=== PATIENT | female | born 1945 | race Caucasian/White ===

== ENCOUNTER → 2016-12-26 | Outpatient (REF) | payer MEDICARE ==
[2016-12-26 12:03] LABS: ALBUMIN 3.9 GM/DL (3.2-5.2); ALBUMIN/GLOBULIN RATIO 1.34 (1.00-1.93); ALKALINE PHOSPHATASE 79 U/L (45-117); ALT/SGPT 36 U/L (12-78); ANION GAP 9 MEQ/L (8-16); AST/SGOT 15 U/L (15-37); BILIRUBIN,TOTAL 0.3 MG/DL (0.2-1.0); BLOOD UREA NITROGEN 22 MG/DL (7-18); CALCIUM LEVEL 9.2 MG/DL (8.8-10.2); CARBON DIOXIDE LEVEL 27 MEQ/L (21-32); CHLORIDE LEVEL 106 MEQ/L (98-107); FREE T4 0.86 NG/DL (0.76-1.46); GLOMERULAR FILTRATION RATE > 60.0 (>39); GLUCOSE, FASTING 115 MG/DL (83-110); POTASSIUM SERUM 4.4 MEQ/L (3.5-5.1); SODIUM LEVEL 142 MEQ/L (136-145); TOTAL PROTEIN 6.8 GM/DL (6.4-8.2)
== END ==
LOC: M SFHCCLAY 08:04
PROVIDERS: ATTEND Nurse Practitioner Family
DX: I10 Essential (primary) hypertension (principal); E03.9 Hypothyroidism, unspecified; E55.9 Vitamin D deficiency, unspecified

== ENCOUNTER → 2017-08-08 | Outpatient (CLI) | payer MEDICARE ==
--- NOTE | 2017-08-08 12:18 | REPMRS ---
Patient History The patient states she has not had a clinical breast exam in over a year. Patient is postmenopausal and has history of other cancer at age 57. No known family history of cancer. Benign excisional biopsy of the left breast, 2003. Benign excisional biopsy of the right breast, 1999. Took estrogen for 5 years. Digital Woman Screen Mammo: August 08, 2017 - Exam #: [id number] Bilateral CC and MLO view(s) were taken. Technologist: Marcy Batista, Technologist Prior study comparison: August 02, 2015, digital woman screen mammo performed at [facility]. July 15, 2014, digital woman screen mammo performed at [facility]. July 16, 2013, digital woman screen mammo performed at [facility]. FINDINGS: There are scattered fibroglandular densities. There has been no change in the appearance of the mammogram from the prior studies. There is a mild amount of scattered fibroglandular density which is fairly symmetric. There is no interval development of dominant mass, architectural distortion, or clustered microcalcification suggestive of malignancy. ASSESSMENT: BI-RADS/ACR category 1 mammogram. Negative. Recommendation Routine screening mammogram in 1 year (for women over age 40). This mammogram was interpreted with the aid of an FDA-approved computer-aided dectection system. Electronically Signed By: Donovan Lagos MD 08/08/17 [id number]
--- NOTE | 2017-08-09 09:11 | DEXA ---
AP SPINE L1 - L4 1.248 0.4 2.1 LT FEMUR TOTAL 0.932 -0.6 1.0 RT FEMUR TOTAL 0.926 -0.6 1.0 TOTAL BODY TOTAL OTHER COMMENTS: Normal bone densitometry of the spine. Normal bone densitometry of the left hip. There is low bone density of the right hip. The density of the spine has increased 10.9% since the initial exam on 09/2006. The spine density has increased 3.0% since the most recent exam on 07/2015. The density of the left hip has increased 6.6% since the initial exam on 09/2006. The density of the left hip has increased 1.6% since the most recent exam on 2014. The density of the right hip has increased 6.4% since the initial exam on 2006. The density of the right hip has increased 0.3% since the most recent exam on . FOLLOW-UP: Recommendation for the next bone density exam: 2 years. FREDA
== END ==
LOC: M WHC 10:48
PROVIDERS: ATTEND Nurse Practitioner Family
DX: Z12.31 Encounter for screening mammogram for malignant neoplasm of breast (principal); M81.0 Age-related osteoporosis without current pathological fracture
CPT/HCPCS: 77080; G0202

== ENCOUNTER → 2017-11-20 | Outpatient (CLI) | payer MEDICARE ==
[2017-11-20 11:12] LABS: HEMATOCRIT 42.1 % (36.0-47.0); HEMOGLOBIN 13.7 g/dl (12.0-16.0); MEAN CORPUSCULAR HEMOGLOBIN 30.9 pg (27.0-33.0); MEAN CORPUSCULAR HGB CONC 32.5 g/dl (32.0-36.5); MEAN CORPUSCULAR VOLUME 94.8 fl (80.0-96.0); PLATELET COUNT, AUTOMATED 288 10^3/uL (150-450); RED BLOOD COUNT 4.44 10^6/uL (4.00-5.40); RED CELL DISTRIBUTION WIDTH 13.8 % (11.5-14.5); WHITE BLOOD COUNT 9.3 10^3/uL (4.0-10.0)
[2017-11-20 11:17] LABS: APPEARANCE, URINE CLEAR (CLEAR); BACTERIA, URINE AUTO NEGATIVE (NEGATIVE); BILIRUBIN, URINE AUTO NEGATIVE (NEGATIVE); BLOOD, URINE BLOOD NEGATIVE (NEGATIVE); COLOR, URINE YELLOW (YELLOW); GLUCOSE, URINE (UA) AUTO NEGATIVE (NEGATIVE); KETONE, URINE AUTO NEGATIVE (NEGATIVE); LEUKOCYTE ESTERASE, URINE AUTO NEGATIVE (NEGATIVE); NITRITE, URINE AUTO NEGATIVE (NEGATIVE); PROTEIN, URINE AUTO NEGATIVE (NEGATIVE); RBC, URINE AUTO 2 /HPF (0-3); SPECIFIC GRAVITY URINE AUTO 1.012 (1.002-1.035); SQUAMOUS EPITHELIAL CELL UR AU 0 /HPF (0-6); UROBILINOGEN, URINE AUTO 0.2 mg/dL (0.0-2.0); WBC, URINE AUTO 0 /HPF (0-3)
[2017-11-20 11:25] LABS: INR 0.89; PROTHROMBIN TIME 12.1 SECONDS (12.4-14.5)
[2017-11-20 11:35] LABS: ERYTHROCYTE SEDIMENTATION RATE 12 mm/hr (0-30)
[2017-11-20 11:39] LABS: ALBUMIN/GLOBULIN RATIO 1.25 (1.00-1.93); ALKALINE PHOSPHATASE 84 U/L (45-117); ALT/SGPT 37 U/L (12-78); ANION GAP 7 MEQ/L (8-16); AST/SGOT 17 U/L (7-37); BILIRUBIN,TOTAL 0.6 MG/DL (0.2-1.0); BLOOD UREA NITROGEN 35 MG/DL (7-18); CALCIUM LEVEL 9.6 MG/DL (8.8-10.2); CARBON DIOXIDE LEVEL 29 MEQ/L (21-32); CHLORIDE LEVEL 103 MEQ/L (98-107); CREATININE FOR GFR 0.92 MG/DL (0.55-1.30); GLOMERULAR FILTRATION RATE > 60.0 (>39); GLUCOSE, FASTING 93 MG/DL (70-100); POTASSIUM SERUM 4.6 MEQ/L (3.5-5.1); SODIUM LEVEL 139 MEQ/L (136-145); TOTAL PROTEIN 7.2 GM/DL (6.4-8.2)
== END ==
LOC: M ADMPAT 09:10
DX: Z01.818 Encounter for other preprocedural examination (principal); M16.12 Unilateral primary osteoarthritis, left hip
CPT/HCPCS: 71046

== ENCOUNTER 2017-12-04 05:46 | Inpatient (IN) | payer MEDICARE ==
[2017-12-04] MEDS: LR 1,000 ML IV ×3 (06:25→13:41)
[2017-12-04] MEDS ORDERED: PROPOFOL 200 MG/20 ML VIAL As Ordered (07:11)
[2017-12-04] MEDS ORDERED: LIDOCAINE 2% INJ 100 MG/5 ML SDV (FOR ANES.) As Ordered (07:11)
[2017-12-04] MEDS ORDERED: fentaNYL 100 MCG/2 ML INJECTION (J3010) As Ordered (07:12)
[2017-12-04] MEDS ORDERED: MIDAZOLAM INJ 2 MG/2 ML VIAL (J2250) As Ordered (07:12)
[2017-12-04] MEDS: ceFAZolin 1GM INJ (J0690 PER 500MG) As Ordered (08:16)
[2017-12-04] MEDS ORDERED: PHENYLephrine HCL 500 MCG/5 ML (100MCG/ML) SYRINGE (J2370) As Ordered ×3 (08:30→09:00)
[2017-12-04] MEDS: TRANEXAMIC ACID 100 MG/ML 10ML VIAL As Ordered (08:50)
[2017-12-04] MEDS: EPINEPHrine INJ 1 MG/ML 1ML AMP As Ordered (08:50)
[2017-12-04] MEDS ORDERED: MORPHINE 1MG/ML IN 0.9% NACL 100ML IV BAG As Ordered (09:16)
[2017-12-04] MEDS ORDERED: ONDANSETRON 4MG/2ML VIAL (J2405) As Ordered (09:47)
[2017-12-04] MEDS: ONDANSETRON 4MG/2ML VIAL (J2405) IV (09:57)
[2017-12-04] MEDS ORDERED: ONDANSETRON 4MG/2ML VIAL (J2405) IV (10:15)
[2017-12-04] MEDS ORDERED: MORPHINE 1MG/ML IN 0.9% NACL 100ML IV BAG IV (10:15)
[2017-12-04] MEDS ORDERED: MORPHINE 10 MG/ML 1ML VIAL (J2270) IV (10:15)
[2017-12-04] MEDS ORDERED: NALOXONE INJ 0.4 MG/1 ML VIAL (J2310) IV (10:15)
[2017-12-04] MEDS ORDERED: fentaNYL 100 MCG/2 ML INJECTION (J3010) IV (10:15)
[2017-12-04] MEDS ORDERED: METOCLOPRAMIDE INJ 10MG/2ML VIAL (J2765) IV (10:15)
[2017-12-04] MEDS ORDERED: PERCOCET 5MG/325MG TAB PO (10:15)
[2017-12-04] MEDS ORDERED: FLEET ENEMA PR (10:15)
[2017-12-04] MEDS ORDERED: EPIDURAL/PCA KEYS XX (10:15)
[2017-12-04] MEDS ORDERED: diphenhydrAMINE INJ 50MG/ML VIAL (J1200) IV (10:15)
[2017-12-04] MEDS ORDERED: NALBUPHINE HCL 10 MG/ML AMP (J2300) IV (10:15)
[2017-12-04] MEDS: LIDOCAINE 1% SDV 5 ML VIAL SQ (13:41)
[2017-12-04] MEDS: VITAMIN D 1,000 INTERNATIONAL UNITS TABLET PO (16:17)
[2017-12-04] MEDS: VENLAFAXINE **XR** 75MG CAPSULE PO (16:17)
[2017-12-04] MEDS: EZETIMIBE 10 MG TAB (ZETIA) PO (16:18)
[2017-12-04] MEDS: ATORVASTATIN 20 MG TAB PO (16:18)
[2017-12-04] MEDS: WARFARIN SOD 5 MG TAB PO (17:50)
[2017-12-05] MEDS: LR 1,000 ML IV (00:14)
[2017-12-05] MEDS: ONDANSETRON 4MG/2ML VIAL (J2405) IV (00:15)
[2017-12-05] MEDS: LEVOTHYROXINE 50MCG TABLET (0.05MG) PO (05:19)
[2017-12-05 05:58] LABS: HEMATOCRIT 37.4 % (36.0-47.0); HEMOGLOBIN 12.3 g/dl (12.0-16.0); MEAN CORPUSCULAR HEMOGLOBIN 31.1 pg (27.0-33.0); MEAN CORPUSCULAR HGB CONC 32.9 g/dl (32.0-36.5); MEAN CORPUSCULAR VOLUME 94.7 fl (80.0-96.0); PLATELET COUNT, AUTOMATED 288 10^3/uL (150-450); RED BLOOD COUNT 3.95 10^6/uL (4.00-5.40); RED CELL DISTRIBUTION WIDTH 14.1 % (11.5-14.5); WHITE BLOOD COUNT 11.2 10^3/uL (4.0-10.0)
[2017-12-05 06:09] LABS: PROTHROMBIN TIME 15.4 SECONDS (12.4-14.5)
[2017-12-05 06:11] LABS: ANION GAP 7 MEQ/L (8-16); BLOOD UREA NITROGEN 26 MG/DL (7-18); CARBON DIOXIDE LEVEL 28 MEQ/L (21-32); CHLORIDE LEVEL 104 MEQ/L (98-107); GLOMERULAR FILTRATION RATE 57.9 (>39); GLUCOSE, FASTING 146 MG/DL (70-100); POTASSIUM SERUM 4.1 MEQ/L (3.5-5.1); SODIUM LEVEL 139 MEQ/L (136-145)
[2017-12-05] MEDS ORDERED: ONDANSETRON 4 MG TAB (S0181) PO (06:45)
[2017-12-05] MEDS: VENLAFAXINE **XR** 75MG CAPSULE PO (10:33)
[2017-12-05] MEDS: OMEPRAZOLE 20 MG CAP PO (10:33)
[2017-12-05] MEDS: VITAMIN D 1,000 INTERNATIONAL UNITS TABLET PO (10:34)
[2017-12-05] MEDS: ATORVASTATIN 20 MG TAB PO (10:34)
[2017-12-05] MEDS: LISINOPRIL 10 MG TAB PO (10:34)
[2017-12-05] MEDS: EZETIMIBE 10 MG TAB (ZETIA) PO (10:34)
[2017-12-05] MEDS: MIRALAX *UNIT DOSE* 17GM PACKET PO (10:35)
[2017-12-05] MEDS: MOM 30ML SUSPENSION UDC PO ×2 (10:35→10:45)
[2017-12-05] MEDS: SENOKOT S TAB PO ×2 (10:35→22:11)
[2017-12-05] MEDS: PERCOCET 5MG/325MG TAB PO ×2 (10:37→15:46)
[2017-12-05] MEDS: WARFARIN SOD 5 MG TAB PO (16:20)
[2017-12-06] MEDS: LEVOTHYROXINE 50MCG TABLET (0.05MG) PO (06:22)
[2017-12-06] MEDS: PERCOCET 5MG/325MG TAB PO ×3 (06:24→18:22)
[2017-12-06 06:58] LABS: HEMATOCRIT 32.2 % (36.0-47.0); HEMOGLOBIN 10.5 g/dl (12.0-16.0); MEAN CORPUSCULAR HEMOGLOBIN 30.7 pg (27.0-33.0); MEAN CORPUSCULAR HGB CONC 32.6 g/dl (32.0-36.5); MEAN CORPUSCULAR VOLUME 94.2 fl (80.0-96.0); PLATELET COUNT, AUTOMATED 240 10^3/uL (150-450); RED BLOOD COUNT 3.42 10^6/uL (4.00-5.40); RED CELL DISTRIBUTION WIDTH 14.1 % (11.5-14.5); WHITE BLOOD COUNT 10.8 10^3/uL (4.0-10.0)
[2017-12-06 07:09] LABS: INR 2.25; PROTHROMBIN TIME 25.7 SECONDS (12.4-14.5)
[2017-12-06 07:20] LABS: ANION GAP 6 MEQ/L (8-16); BLOOD UREA NITROGEN 22 MG/DL (7-18); CALCIUM LEVEL 8.9 MG/DL (8.8-10.2); CARBON DIOXIDE LEVEL 30 MEQ/L (21-32); CHLORIDE LEVEL 100 MEQ/L (98-107); CREATININE FOR GFR 0.88 MG/DL (0.55-1.30); GLOMERULAR FILTRATION RATE > 60.0 (>39); GLUCOSE, FASTING 115 MG/DL (70-100); POTASSIUM SERUM 4.1 MEQ/L (3.5-5.1); SODIUM LEVEL 136 MEQ/L (136-145)
[2017-12-06] MEDS: MOM 30ML SUSPENSION UDC PO (09:28)
[2017-12-06] MEDS: EZETIMIBE 10 MG TAB (ZETIA) PO (09:28)
[2017-12-06] MEDS: OMEPRAZOLE 20 MG CAP PO (09:28)
[2017-12-06] MEDS: VENLAFAXINE **XR** 75MG CAPSULE PO (09:28)
[2017-12-06] MEDS: ATORVASTATIN 20 MG TAB PO (09:28)
[2017-12-06] MEDS: VITAMIN D 1,000 INTERNATIONAL UNITS TABLET PO (09:28)
[2017-12-06] MEDS: MIRALAX *UNIT DOSE* 17GM PACKET PO (09:28)
[2017-12-06] MEDS: LISINOPRIL 10 MG TAB PO (09:29)
[2017-12-06] MEDS: SENOKOT S TAB PO ×2 (09:29→22:23)
[2017-12-06] MEDS: ACETAMINOPHEN TAB 650MG DOSE (2X325MG) PO (22:23)
[2017-12-07] MEDS: ACETAMINOPHEN TAB 650MG DOSE (2X325MG) PO (05:41)
[2017-12-07] MEDS: LEVOTHYROXINE 50MCG TABLET (0.05MG) PO (05:41)
[2017-12-07 06:59] LABS: INR 1.86
[2017-12-07 07:12] LABS: ANION GAP 2 MEQ/L (8-16); BLOOD UREA NITROGEN 18 MG/DL (7-18); CALCIUM LEVEL 8.3 MG/DL (8.8-10.2); CARBON DIOXIDE LEVEL 32 MEQ/L (21-32); CHLORIDE LEVEL 106 MEQ/L (98-107); CREATININE FOR GFR 0.69 MG/DL (0.55-1.30); GLOMERULAR FILTRATION RATE > 60.0 (>39); GLUCOSE, FASTING 108 MG/DL (70-100); POTASSIUM SERUM 4.4 MEQ/L (3.5-5.1); SODIUM LEVEL 140 MEQ/L (136-145)
[2017-12-07] MEDS: ATORVASTATIN 20 MG TAB PO (08:22)
[2017-12-07] MEDS: VITAMIN D 1,000 INTERNATIONAL UNITS TABLET PO (08:22)
[2017-12-07] MEDS: MOM 30ML SUSPENSION UDC PO (08:22)
[2017-12-07] MEDS: VENLAFAXINE **XR** 75MG CAPSULE PO (08:22)
[2017-12-07] MEDS: SENOKOT S TAB PO (08:22)
[2017-12-07] MEDS: OMEPRAZOLE 20 MG CAP PO (08:22)
[2017-12-07] MEDS: EZETIMIBE 10 MG TAB (ZETIA) PO (08:22)
[2017-12-07] MEDS: MIRALAX *UNIT DOSE* 17GM PACKET PO (08:22)
[2017-12-07] MEDS: PERCOCET 5MG/325MG TAB PO ×2 (08:23→14:17)
[2017-12-07] MEDS: LISINOPRIL 10 MG TAB PO (08:25)
== END 2017-12-07 14:20 | disposition home health service (06) | DRG 470 ==
LOC: M OR 05:46 → M MS5PR 10:51
PROC: 0SRB02Z Replacement of Left Hip Joint with Metal on Polyethylene Synthetic Substitute, Open Approach (ICD-10-PCS; principal; 2017-12-04 07:30)
DX: M16.12 Unilateral primary osteoarthritis, left hip (principal); I10 Essential (primary) hypertension; E78.2 Mixed hyperlipidemia; E03.9 Hypothyroidism, unspecified; F34.1 Dysthymic disorder; K21.9 Gastro-esophageal reflux disease without esophagitis; J30.2 Other seasonal allergic rhinitis; Z79.899 Other long term (current) drug therapy; Z87.891 Personal history of nicotine dependence; E55.9 Vitamin D deficiency, unspecified; E66.9 Obesity, unspecified; Z68.32 Body mass index [BMI] 32.0-32.9, adult

== ENCOUNTER → 2017-12-10 | Outpatient (REF) | payer MEDICARE ==
[2017-12-10 19:19] LABS: INR 1.83; PROTHROMBIN TIME 21.7 SECONDS (12.4-14.5)
== END ==
LOC: M SHH 17:23
DX: Z51.81 Encounter for therapeutic drug level monitoring (principal); Z79.01 Long term (current) use of anticoagulants
CPT/HCPCS: 85610

== ENCOUNTER → 2017-12-13 | Outpatient (REF) | payer MEDICARE ==
[2017-12-13 13:48] LABS: INR 1.69; PROTHROMBIN TIME 20.4 SECONDS (12.4-14.5)
== END ==
LOC: M SHH 13:32
DX: Z51.81 Encounter for therapeutic drug level monitoring (principal); Z79.01 Long term (current) use of anticoagulants
CPT/HCPCS: 85610

== ENCOUNTER → 2017-12-20 | Outpatient (REF) | payer MEDICARE ==
[2017-12-20 13:08] LABS: INR 1.71; PROTHROMBIN TIME 20.6 SECONDS (12.4-14.5)
== END ==
LOC: M LAB REF 12:45
DX: Z79.01 Long term (current) use of anticoagulants (principal)
CPT/HCPCS: 85610

== ENCOUNTER → 2017-12-25 | Outpatient (REF) | payer MEDICARE ==
[2017-12-25 16:43] LABS: INR 1.74; PROTHROMBIN TIME 20.9 SECONDS (12.4-14.5)
== END ==
LOC: M SHH 15:50
DX: Z79.01 Long term (current) use of anticoagulants (principal)
CPT/HCPCS: 85610

== ENCOUNTER → 2017-12-27 | Outpatient (REF) | payer MEDICARE ==
[2017-12-27 14:47] LABS: INR 1.91; PROTHROMBIN TIME 22.5 SECONDS (12.4-14.5)
== END ==
LOC: M SHH 14:17
DX: Z79.01 Long term (current) use of anticoagulants (principal)
CPT/HCPCS: 85610

== ENCOUNTER → 2017-12-31 | Outpatient (REF) | payer MEDICARE ==
[2017-12-31 11:43] LABS: PROTHROMBIN TIME 27.1 SECONDS (12.4-14.5)
== END ==
LOC: M SHH 11:22
DX: Z79.01 Long term (current) use of anticoagulants (principal)
CPT/HCPCS: 85610

== ENCOUNTER → 2018-03-20 | Outpatient (REF) | payer MEDICARE ==
[2018-03-20 15:47] LABS: FREE T4 1.01 NG/DL (0.76-1.46)
== END ==
LOC: M SFHCPLAZ 10:18
DX: E03.9 Hypothyroidism, unspecified (principal)
CPT/HCPCS: 84443

== ENCOUNTER → 2018-09-23 | Outpatient (REF) | payer MEDICARE ==
[~2018-09-23] MED LIST: ATOR40TA75 PO; CALTCHW5 PO; COUM1TAB17 PO; COUM2.5T17 PO; LISI10TA4 PO; MELO15TA28 PO; NIAC500T5 PO; OMEP40CA2 PO; PERC5TAB12 PO; SYNT50TA PO; VENL100T PO; VENL150C43 PO; VITA-122 PO; ZETI10TA30 PO
[2018-09-23 17:08] LABS: ALBUMIN 3.9 GM/DL (3.2-5.2); ALT/SGPT 30 U/L (12-78); BILIRUBIN,TOTAL 0.5 MG/DL (0.2-1.0); BLOOD UREA NITROGEN 21 MG/DL (7-18); CALCIUM LEVEL 9.4 MG/DL (8.8-10.2); CARBON DIOXIDE LEVEL 25 MEQ/L (21-32); CHLORIDE LEVEL 107 MEQ/L (98-107); CHOLESTEROL LEVEL 166 MG/DL (<200); CHOLESTEROL RISK RATIO 2.634 (<5); CREATININE FOR GFR 0.91 MG/DL (0.55-1.30); FREE T4 0.89 NG/DL (0.76-1.46); GLOMERULAR FILTRATION RATE > 60.0 (>39); GLUCOSE, FASTING 117 MG/DL (70-100); HDL CHOLESTEROL 63 MG/DL (>40); LDL CHOLESTEROL 75 MG/DL (<100); NON-HDL-C 103 MG/DL; POTASSIUM SERUM 4.5 MEQ/L (3.5-5.1); SODIUM LEVEL 143 MEQ/L (136-145); TOTAL PROTEIN 7.1 GM/DL (6.4-8.2); TRIGLYCERIDES LEVEL 140 MG/DL (<150)
[2018-09-23 17:10] LABS: TOTAL 25(OH) VITAMIN D 39.2 NG/ML (30.0-100.0)
== END ==
LOC: M SFHCCLAY 10:05
PROVIDERS: ATTEND Nurse Practitioner Family
DX: I10 Essential (primary) hypertension (principal); E03.9 Hypothyroidism, unspecified; E78.49 Other hyperlipidemia; M81.0 Age-related osteoporosis without current pathological fracture

== ENCOUNTER → 2019-03-17 | Outpatient (REF) | payer MEDICARE ==
[2019-03-17 12:27] LABS: ALT/SGPT 36 U/L (12-78); BILIRUBIN,TOTAL 0.5 MG/DL (0.2-1.0); BLOOD UREA NITROGEN 18 MG/DL (7-18); CALCIUM LEVEL 9.5 MG/DL (8.8-10.2); CARBON DIOXIDE LEVEL 27 MEQ/L (21-32); CHLORIDE LEVEL 105 MEQ/L (98-107); CREATININE FOR GFR 0.89 MG/DL (0.55-1.30); FREE T4 0.77 NG/DL (0.76-1.46); GLOMERULAR FILTRATION RATE > 60.0 (>39); GLUCOSE, FASTING 129 MG/DL (70-100); POTASSIUM SERUM 4.6 MEQ/L (3.5-5.1); SODIUM LEVEL 140 MEQ/L (136-145); TOTAL 25(OH) VITAMIN D 29.2 NG/ML (30.0-100.0); TOTAL PROTEIN 7.4 GM/DL (6.4-8.2)
== END ==
LOC: M SFHCCLAY 07:18
PROVIDERS: ATTEND Nurse Practitioner Family
DX: I10 Essential (primary) hypertension (principal); E03.9 Hypothyroidism, unspecified; M81.0 Age-related osteoporosis without current pathological fracture

== ENCOUNTER → 2019-03-20 | Outpatient (REF) | payer MEDICARE ==
[2019-03-20 13:10] LABS: HEMOGLOBIN A1c 5.9 %
== END ==
LOC: M SFHCPLAZ 07:27
PROVIDERS: ATTEND Nurse Practitioner Family
DX: R73.01 Impaired fasting glucose (principal)

== ENCOUNTER → 2019-03-27 | Outpatient (CLI) | payer MEDICARE ==
--- NOTE | 2019-03-27 15:10 | REPMRS ---
Patient History The patient states she has not had a clinical breast exam in over a year. No known family history of cancer. Benign excisional biopsy of the left breast, 2003. Benign excisional biopsy of the right breast, 1999. Took estrogen for 5 years. 3D TOMOSYNTHESIS WAS PERFORMED. The [facility] lifetime risk for breast cancer is 2.9%. Digital Woman Screen Mammo: March 27, 2019 - Exam #: [id number] Bilateral CC and MLO view(s) were taken. Technologist: Flakita Wisdom, Technologist Prior study comparison: August 08, 2017, digital woman screen mammo performed at [facility]. August 02, 2015, digital woman screen mammo performed at [facility]. FINDINGS: There are scattered fibroglandular densities. There has been no change in the appearance of the mammogram from the prior studies. There is a mild amount of residual fibroglandular tissue which is fairly symmetric. There is no interval development of dominant mass, architectural distortion, or clustered microcalcification suggestive of malignancy. Assessment: BI-RADS/ACR category 1 mammogram. Negative Mammogram. Recommendation Routine screening mammogram in 1 year (for women over age 40). This mammogram was interpreted with the aid of an FDA-approved computer-aided dectection system. Electronically Signed By: Evens Kim MD 03/27/19 [id number]
== END ==
LOC: M WHC 12:03
PROVIDERS: ATTEND Nurse Practitioner Family
DX: Z12.31 Encounter for screening mammogram for malignant neoplasm of breast (principal); Z92.23 Personal history of estrogen therapy

== ENCOUNTER → 2019-09-18 | Outpatient (REF) | payer MEDICARE ==
[~2019-09-18] MED LIST changes: -OMEP40CA2 PO; +OMEP40CA97 PO; +ZETI10TA16 PO; -ZETI10TA30 PO
[2019-09-18 13:38] LABS: ALBUMIN 4.2 GM/DL (3.2-5.2); BILIRUBIN,TOTAL 0.5 MG/DL (0.2-1.0); CALCIUM LEVEL 9.5 MG/DL (8.8-10.2); CHOLESTEROL RISK RATIO 3.125 (<5); CREATININE FOR GFR 0.99 MG/DL (0.55-1.30); GLOMERULAR FILTRATION RATE 58.4 (>39); POTASSIUM SERUM 4.3 MEQ/L (3.5-5.1); THYROID STIMULATING HORMONE 2.51 uIU/ML (0.358-3.740); TOTAL 25(OH) VITAMIN D 34.1 NG/ML (30.0-100.0); TOTAL PROTEIN 6.9 GM/DL (6.4-8.2)
== END ==
LOC: M SFHCCLAY 08:41
PROVIDERS: ATTEND Family Medicine
DX: I10 Essential (primary) hypertension (principal); E78.49 Other hyperlipidemia; E03.9 Hypothyroidism, unspecified; E55.9 Vitamin D deficiency, unspecified

== ENCOUNTER → 2020-07-07 | Outpatient (REF) | payer MEDICARE ==
[2020-07-07 12:07] LABS: BLOOD UREA NITROGEN 18 MG/DL (7-18); CALCIUM LEVEL 9.8 MG/DL (8.8-10.2); CARBON DIOXIDE LEVEL 28 MEQ/L (21-32); CHLORIDE LEVEL 108 MEQ/L (98-107); CREATININE FOR GFR 0.95 MG/DL (0.55-1.30); GLOMERULAR FILTRATION RATE > 60.0 (>39); GLUCOSE, FASTING 115 MG/DL (70-100); POTASSIUM SERUM 4.3 MEQ/L (3.5-5.1); SODIUM LEVEL 142 MEQ/L (136-145)
[2020-07-07 14:30] LABS: HEMOGLOBIN A1c 5.5 %
== END ==
LOC: M SFHCCLAY 08:30
PROVIDERS: ATTEND Family Medicine
DX: R73.03 Prediabetes (principal)

== ENCOUNTER → 2020-07-08 | Outpatient (REF) | payer MEDICARE ==
[2020-07-08 12:33] LABS: HEMATOCRIT 44.2 % (36.0-47.0); HEMOGLOBIN 13.9 g/dl (12.0-15.5); MEAN CORPUSCULAR HEMOGLOBIN 31.2 pg (27.0-33.0); MEAN CORPUSCULAR HGB CONC 31.4 g/dl (32.0-36.5); MEAN CORPUSCULAR VOLUME 99.1 fl (80.0-96.0); PLATELET COUNT, AUTOMATED 325 10^3/uL (150-450); RED BLOOD COUNT 4.46 10^6/uL (4.00-5.40); WHITE BLOOD COUNT 7.6 10^3/uL (4.0-10.0)
[2020-07-08 13:03] LABS: FREE T4 1.01 NG/DL (0.76-1.46); THYROID STIMULATING HORMONE 1.79 uIU/ML (0.358-3.740)
[2020-07-08 13:15] LABS: ALBUMIN 4.2 GM/DL (3.2-5.2); ALT/SGPT 30 U/L (12-78); BILIRUBIN,TOTAL 0.6 MG/DL (0.2-1.0); BLOOD UREA NITROGEN 18 MG/DL (7-18); CALCIUM LEVEL 10.1 MG/DL (8.8-10.2); CARBON DIOXIDE LEVEL 29 MEQ/L (21-32); CHLORIDE LEVEL 105 MEQ/L (98-107); CREATININE FOR GFR 0.91 MG/DL (0.55-1.30); GLOMERULAR FILTRATION RATE > 60.0 (>39); GLUCOSE, FASTING 95 MG/DL (70-100); NT-PRO BNP 30 PG/ML (<450); POTASSIUM SERUM 5.4 MEQ/L (3.5-5.1); SODIUM LEVEL 139 MEQ/L (136-145); TOTAL PROTEIN 7.2 GM/DL (6.4-8.2)
== END ==
LOC: M SFHCADAM 08:38
PROVIDERS: ATTEND Family Medicine
DX: R06.00 Dyspnea, unspecified (principal); R07.89 Other chest pain; E03.9 Hypothyroidism, unspecified

== ENCOUNTER → 2020-07-08 | Outpatient (CLI) | payer MEDICARE ==
--- NOTE | 2020-07-08 10:22 | REP ---
INDICATION: DYSPNEA. COMPARISON: Comparison x-rays May 18, 2015 and November 20, 2017. TECHNIQUE: Two views.. FINDINGS: The lungs are well inflated and free of infiltrate. The pleural angles are sharp. The heart size is normal. Pulmonary vasculature is not increased. No significant bony abnormality is seen. Thoracic aorta is mildly tortuous. There are minimal degenerative changes in the thoracic spine. There is a mild scoliotic curvature in the thoracolumbar spine as well unchanged. IMPRESSION: No active disease.. <Electronically signed by Donovan Lagos > 07/08/20 [id number]
== END ==
LOC: M ADAMS 08:54
PROVIDERS: ATTEND Family Medicine
DX: R06.00 Dyspnea, unspecified (principal); R07.89 Other chest pain

== ENCOUNTER → 2021-03-30 | Outpatient (CLI) | payer MEDICARE ==
[~2021-03-30] MED LIST changes: +LISI10TA22 PO; -LISI10TA4 PO; +OMEP40CA4 PO; -OMEP40CA97 PO
--- NOTE | 2021-03-30 16:08 | REP ---
INDICATION: M25.561 ACUTE PAIN OF RIGHT KNEE COMPARISON: None. TECHNIQUE: Five views right knee. FINDINGS: There is no evidence of acute fracture, dislocation, or intrinsic bone disease.There is moderate medial joint space narrowing, subchondral sclerosis and spurring. There is mild lateral joint space narrowing, subchondral sclerosis and spurring. There is moderate diffuse spurring of the patella. There is mild lateral patellofemoral compartment narrowing with subchondral sclerosis. There is a small suprapatellar effusion. IMPRESSION: No fracture or dislocation. Diffuse degenerative changes, most significantly in the medial joint compartment. Small suprapatellar effusion. <Electronically signed by Evens Kim > 03/30/21 [id number]
== END ==
LOC: M CLY 15:11
PROVIDERS: ATTEND Physician Assistant
DX: M17.11 Unilateral primary osteoarthritis, right knee (principal); M25.461 Effusion, right knee; M25.561 Pain in right knee

== ENCOUNTER → 2022-05-08 | Outpatient (REF) | payer MEDICARE ==
[2022-05-08 12:06] LABS: BASO # 0.1 10^3/uL (0.0-0.2); BASO % 1.5 % (0.0-1.0); EOS # 0.3 10^3/uL (0.0-0.5); EOS % 3.9 % (0.0-3.0); HEMOGLOBIN 14.1 g/dl (12.0-15.5); LYMPH # 2.2 10^3/uL (1.5-5.0); LYMPH % 26.9 % (24.0-44.0); MEAN CORPUSCULAR HGB CONC 32.8 g/dl (32.0-36.5); MEAN CORPUSCULAR VOLUME 97.7 fl (80.0-96.0); MONO # 0.7 10^3/uL (0.0-0.8); MONO % 8.3 % (2.0-8.0); NEUTROPHILS # 4.9 10^3/uL (1.5-8.5); NEUTROPHILS % 59.2 % (36.0-66.0); PLATELET COUNT, AUTOMATED 362 10^3/uL (150-450); WHITE BLOOD COUNT 8.2 10^3/uL (4.0-10.0)
[2022-05-08 13:00] LABS: ALBUMIN 3.9 GM/DL (3.2-5.2); ALT/SGPT 40 U/L (12-78); BILIRUBIN,TOTAL 0.6 MG/DL (0.2-1.0); BLOOD UREA NITROGEN 16 MG/DL (7-18); CALCIUM LEVEL 9.6 MG/DL (8.8-10.2); CARBON DIOXIDE LEVEL 26 MEQ/L (21-32); CHLORIDE LEVEL 104 MEQ/L (98-107); CREATININE FOR GFR 0.95 MG/DL (0.55-1.30); GLOMERULAR FILTRATION RATE > 60.0 (>39); GLUCOSE, FASTING 121 MG/DL (70-100); POTASSIUM SERUM 4.4 MEQ/L (3.5-5.1); SODIUM LEVEL 138 MEQ/L (136-145); TOTAL PROTEIN 7.2 GM/DL (6.4-8.2)
== END ==
LOC: M SFHCCLAY 08:55
PROVIDERS: ATTEND Physician Assistant
DX: R29.6 Repeated falls (principal); E07.9 Disorder of thyroid, unspecified

== ENCOUNTER → 2022-07-20 | Outpatient (REF) | payer MEDICARE ==
[2022-07-20 16:16] LABS: HEMATOCRIT 41.3 % (36.0-47.0); HEMOGLOBIN 13.5 g/dl (12.0-15.5); MEAN CORPUSCULAR HEMOGLOBIN 32.1 pg (27.0-33.0); MEAN CORPUSCULAR HGB CONC 32.7 g/dl (32.0-36.5); MEAN CORPUSCULAR VOLUME 98.1 fl (80.0-96.0); PLATELET COUNT, AUTOMATED 338 10^3/uL (150-450); RED BLOOD COUNT 4.21 10^6/uL (4.00-5.40); WHITE BLOOD COUNT 8.6 10^3/uL (4.0-10.0)
[2022-07-20 17:11] LABS: BILIRUBIN,TOTAL 0.5 MG/DL (0.2-1.0); CALCIUM LEVEL 10.1 MG/DL (8.8-10.2); CHOLESTEROL RISK RATIO 2.629 (<5); CREATININE FOR GFR 1.02 MG/DL (0.55-1.30); FREE T4 0.96 NG/DL (0.76-1.46); GLOMERULAR FILTRATION RATE 55.9 (>39); POTASSIUM SERUM 4.5 MEQ/L (3.5-5.1); THYROID STIMULATING HORMONE 1.25 uIU/ML (0.358-3.740); TOTAL PROTEIN 7.4 GM/DL (6.4-8.2)
[2022-07-20 17:24] LABS: HEMOGLOBIN A1c 5.7 %
== END ==
LOC: M SFHCADAM 14:48
PROVIDERS: ATTEND Physician Assistant Medical
DX: R73.03 Prediabetes (principal); E78.5 Hyperlipidemia, unspecified; F34.1 Dysthymic disorder; E03.9 Hypothyroidism, unspecified

== ENCOUNTER → 2022-07-31 | Outpatient (REF) | payer MEDICARE | LOC: M LABDRAWC 17:09 | PROVIDERS: ATTEND Physician Assistant | DX: R06.00 Dyspnea, unspecified (principal); I10 Essential (primary) hypertension ==

== ENCOUNTER → 2022-08-10 | Outpatient (CLI) | payer MEDICARE | LOC: M PLAIMG 13:53 | PROVIDERS: ATTEND Physician Assistant Medical | DX: R42 Dizziness and giddiness (principal); R29.6 Repeated falls; R11.2 Nausea with vomiting, unspecified ==

== ENCOUNTER → 2022-08-16 | Outpatient (REF) | payer MEDICARE ==
[2022-08-16 18:14] LABS: FOLATE 13.43 NG/ML (>5.4)
== END ==
LOC: M SFHCCLAY 12:02
PROVIDERS: ATTEND Family Medicine
DX: R29.6 Repeated falls (principal); R06.09 Other forms of dyspnea

== ENCOUNTER → 2022-08-24 | Outpatient (CLI) | payer MEDICARE | LOC: M CARPUL 14:20 | PROVIDERS: ATTEND Physician Assistant | DX: R06.00 Dyspnea, unspecified (principal) ==

== ENCOUNTER → 2024-02-08 | Outpatient (REF) | payer MEDICARE ==
[~2024-02-08] MED LIST changes: +EZET10TA58 PO; -ZETI10TA16 PO
[2024-02-08 12:02] LABS: ALBUMIN 3.8 G/DL (3.2-5.2); BILIRUBIN,TOTAL 0.5 MG/DL (0.3-1.2); CALCIUM LEVEL 9.7 MG/DL (8.3-10.6); CHOLESTEROL RISK RATIO 4.14 (<5); CREATININE FOR GFR 1.02 MG/DL (0.55-1.30); GLOMERULAR FILTRATION RATE 55.7 (>39); HDL CHOLESTEROL 50.9 MG/DL (>40); LDL CHOLESTEROL 97.3 MG/DL (<100); NON-HDL-C 160.1 MG/DL; POTASSIUM SERUM 4.2 MMOL/L (3.5-5.1); TOTAL PROTEIN 6.7 G/DL (5.7-8.2)
[2024-02-08 12:04] LABS: THYROID STIMULATING HORMONE 1.737 uIU/ML (0.55-4.78)
[2024-02-08 12:06] LABS: HEMOGLOBIN A1c 5.6 % (4.0-6.0)
== END ==
LOC: M SFHCCLAY 08:59
PROVIDERS: ATTEND Family Medicine
DX: E78.5 Hyperlipidemia, unspecified (principal); R73.03 Prediabetes; E03.9 Hypothyroidism, unspecified

== ENCOUNTER → 2024-02-13 | Outpatient (CLI) | payer MEDICARE | LOC: M ADAMS 14:33 | PROVIDERS: ATTEND Family Medicine | DX: R06.09 Other forms of dyspnea (principal) ==

== ENCOUNTER → 2024-10-13 | Outpatient (REF) | payer MEDICARE ==
[2024-10-13 13:42] LABS: HEMOGLOBIN A1c 5.5 % (4.0-6.0)
[2024-10-13 13:48] LABS: ALBUMIN 3.6 G/DL (3.2-5.2); BILIRUBIN,TOTAL 0.5 MG/DL (0.3-1.2); CALCIUM LEVEL 9.7 MG/DL (8.3-10.6); CHOLESTEROL RISK RATIO 3.68 (<5); GLOMERULAR FILTRATION RATE 56.9 (>39); HDL CHOLESTEROL 46.7 MG/DL (>40); LDL CHOLESTEROL 76.9 MG/DL (<100); NON-HDL-C 125.3 MG/DL; POTASSIUM SERUM 4.7 MMOL/L (3.5-5.1); TOTAL PROTEIN 6.9 G/DL (5.7-8.2)
== END ==
LOC: M SFHCCLAY 08:17
PROVIDERS: ATTEND Family Medicine
DX: E78.5 Hyperlipidemia, unspecified (principal); R73.03 Prediabetes

== ENCOUNTER → 2024-10-14 | Outpatient (REF) | payer MEDICARE ==
[2024-10-14 17:42] LABS: HEMATOCRIT 42.9 % (36.0-47.0); HEMOGLOBIN 13.7 g/dl (12.0-15.5); MEAN CORPUSCULAR HEMOGLOBIN 30.9 pg (27.0-33.0); MEAN CORPUSCULAR HGB CONC 31.9 g/dl (32.0-36.5); MEAN CORPUSCULAR VOLUME 96.8 fl (80.0-96.0); PLATELET COUNT, AUTOMATED 366 10^3/uL (150-450); RED BLOOD COUNT 4.43 10^6/uL (4.00-5.40)
== END ==
LOC: M SFHCADAM 12:20
PROVIDERS: ATTEND Family Medicine
DX: R06.09 Other forms of dyspnea (principal)

== ENCOUNTER → 2024-10-14 | Outpatient (CLI) | payer MEDICARE | LOC: M ADAMS 12:49 | PROVIDERS: ATTEND Family Medicine | DX: R06.09 Other forms of dyspnea (principal) ==

== ENCOUNTER → 2025-03-20 | Outpatient (CLI) | payer MEDICARE | LOC: M SOG 07:27 | PROVIDERS: ATTEND Neuromusculoskeletal Medicine, Sports Medicine | DX: M79.641 Pain in right hand (principal) ==

== ENCOUNTER → 2025-04-21 | Outpatient (REF) | payer MEDICARE ==
[2025-04-21 12:58] LABS: PLATELET COUNT, AUTOMATED 318 10^3/uL (150-450)
[2025-04-21 13:11] LABS: INR 0.87
[2025-04-21 13:19] LABS: ESTIMATED AVERAGE GLUCOSE 117.0 MG/DL (60-110)
[2025-04-21 13:32] LABS: ALT/SGPT 37.0 U/L (7.0-40); AST/SGOT 19.0 U/L (<34); CALCIUM LEVEL 9.6 MG/DL (8.3-10.6); CARBON DIOXIDE LEVEL 28.0 MMOL/L (20-31); CHLORIDE LEVEL 103.0 MMOL/L (98-107); CHOLESTEROL LEVEL 174.0 MG/DL (<200); CHOLESTEROL RISK RATIO 3.13 (<5); CREATININE FOR GFR 1.1 MG/DL (0.55-1.30); GLOMERULAR FILTRATION RATE 50.8 (>32); LDL CHOLESTEROL 79.1 MG/DL (<100); NON-HDL-C 118.5 MG/DL; POTASSIUM SERUM 4.3 MMOL/L (3.5-5.1); SODIUM LEVEL 142.0 MMOL/L (136-145); TRIGLYCERIDES LEVEL 197.0 MG/DL (<150)
[2025-04-21 13:36] LABS: FREE T4 1.24 NG/DL (0.89-1.76)
== END ==
LOC: M SFHCADAM 09:43
PROVIDERS: ATTEND Family Medicine
DX: N18.31 Chronic kidney disease, stage 3a (principal); E03.9 Hypothyroidism, unspecified; R73.03 Prediabetes; E78.5 Hyperlipidemia, unspecified; Z01.818 Encounter for other preprocedural examination

== ENCOUNTER 2025-05-05 06:39 | Day surgery (SDC) | payer MEDICARE ==
[~2025-05-05] VITALS: Ht 160 cm; Wt 88.0 kg
[~2025-05-05 06:39] MED LIST changes: +VITA200012 PO
[2025-05-05] MEDS ORDERED: MAGN400C PO (07:54)
[2025-05-05] MEDS ORDERED: LR 1,000 ML IV SCH (07:55)
[2025-05-05] MEDS ORDERED: KETOROLAC 30 MG/ML 1 ML VIAL As Ordered ONE (08:20)
[2025-05-05] MEDS ORDERED: LIDOCAINE 2% 100 MG/5 ML SDV (FOR ANES.) As Ordered ONE (08:20)
[2025-05-05] MEDS ORDERED: MIDAZOLAM INJ 2 MG/2 ML VIAL As Ordered ONE (08:25)
[2025-05-05] MEDS: ceFAZolin SOD 2 GM IV ONCE IV ONE (08:33)
[2025-05-05 09:06] VITALS: BP 134/68; TEMP 97.7; O2SAT 95
[2025-05-05] MEDS ORDERED: SUZE50TA PO (09:15)
== END 2025-05-05 09:30 | disposition home or self-care (01) ==
LOC: M SDC 06:39
PROVIDERS: ATTEND Neuromusculoskeletal Medicine, Sports Medicine
DX: M65.341 Trigger finger, right ring finger (principal); I10 Essential (primary) hypertension; E03.9 Hypothyroidism, unspecified; E78.00 Pure hypercholesterolemia, unspecified; Z79.899 Other long term (current) drug therapy; Z87.891 Personal history of nicotine dependence; Z90.710 Acquired absence of both cervix and uterus; Z96.643 Presence of artificial hip joint, bilateral; K21.9 Gastro-esophageal reflux disease without esophagitis; Z79.890 Hormone replacement therapy
CPT/HCPCS: 26055; J0665; J0690; J1885; J2250; J3010